=== PATIENT | male | born 1960 | race African-American/Black ===

== ENCOUNTER 2019-07-18 11:29 | Inpatient (IN) ==
[2019-07-18] MEDS ORDERED: NORCO-5 PO ONE (12:06)
--- NOTE | 2019-07-18 12:10 | EKG Report ---
Test Performed on : 07/18/2019 11:47:53 AM Test Reason : chest wall pain Blood Pressure : / mmHG Vent. Rate : 072 BPM Atrial Rate : 072 BPM P-R Int : 180 ms QRS Dur : 106 ms QT Int : 428 ms P-R-T Axes : 011 068 197 degrees QTc Int : 468 ms Normal sinus rhythm. ST & T wave abnormality, consider lateral ischemia Prolonged QT Abnormal ECG When compared with ECG of 14-DEC-2018 09:07, Questionable change in QRS axis ST now depressed in Lateral leads Inverted T waves have replaced nonspecific T wave abnormality in Lateral leads Unconfirmed Result
--- NOTE | 2019-07-18 12:33 | Diag Imaging Result Doc PS360 ---
EXAM: CHEST-1 VIEW INDICATION: chest wall pain TECHNIQUE: One view COMPARISON: 10/23/2018 FINDINGS: Inspiration is somewhat suboptimal. The lungs are grossly clear. There is no discrete pleural fluid collection or pneumothorax. There are stable CABG changes. There is stable cardiomegaly. Central vasculature is unremarkable. IMPRESSION: Stable cardiomegaly but no definite acute chest pathology by plain radiograph. Electronically signed by Levon Pereira 07/18/2019 12:30 PM
[2019-07-18 12:36] LABS: BASO# 0.07 X1000 (0.0-0.2); EOS% 4.2 % (0.0-10.0); HEMATOCRIT 36.3 % (42.0-52.0); LYMPH# 2.69 X1000 (1.2-3.4); LYMPH% 37.9 % (20.5-51.1); MCH 29.9 PG (27-31); MCHC 33.1 g/dL (33-37); MCV 90.5 FL (81-99); MONO# 0.84 X1000 (0.11-0.59); MONO% 11.8 % (1.7-9.3); MPV 9.2 FL (7.4-10.4); NEUT% 45.1 % (42.2-75.2); PLT 244 X1000 (130-400); RBC 4.01 XMIL (4.7-6.1); RDW 13.3 % (11.5-14.5)
[2019-07-18 13:03] LABS: ALB/GLOB RATIO 1.8; ALBUMIN 4.2 g/dL (3.5-5.0); CALCIUM 8.3 mg/dL (8.8-10.2); CREATININE 3.8 mg/dL (0.7-1.2); POTASSIUM 3.3 mmol/L (3.5-5.1); TOTAL BILIRUBIN 0.25 mg/dL (0.20-1.00); TOTAL PROTEIN 6.6 g/dL (6.3-8.3)
--- NOTE | 2019-07-18 14:59 | PROVIDER DOCUMENTATION ---
This chart was entered by Alexia Mike Scribe, acting as scribe for Sage Eatsman MD. HPI-Chest Pain - General Chief Complaint: Chest Pain Stated Complaint: R-SHOULDER DISCOMFORT Time Seen by Provider: 07/18/19 11:47 Source: patient Allergies/Adverse Reactions: Patient Allergies Allergy/AdvReac Type Severity Reaction Status Date / Time latex Allergy RASH Verified 07/18/19 15:00 Home Medications: Home Medication List Medication Instructions Recorded Confirmed Last Taken Type Aspirin EC 81 mg PO DAILY 10/09/16 07/18/19 06/27/19 08:00 History Insulin Regular, Human [Novolin R] 1 unit SUBQ PRN PRN 10/09/16 07/18/19 06/26/19 21:00 History LISINOpril [Prinivil] 10 mg PO DAILY #90 tablet 10/12/16 07/18/19 06/27/19 08:00 Rx Cholecalciferol (Vit D3) [Vitamin 1,000 unit PO DAILY 12/14/18 07/18/19 06/26/19 08:00 History D] Insulin Glargine,Hum.rec.anlog 1 unit SQ PRN PRN 12/14/18 07/18/19 06/25/19 History [Lantus Solostar] Multivitamin/Iron/Folic Acid 1 ea PO DAILY 12/14/18 07/18/19 06/26/19 08:00 History [Centrum Adults Tablet] Amlodipine Besylate [Norvasc] 10 mg PO DAILY 06/25/19 07/18/19 06/26/19 08:00 History Atorvastatin Calcium [Lipitor] 20 mg PO DAILY 06/25/19 07/18/19 06/26/19 21:00 History Metoprolol [Lopressor] 25 mg PO DAILY 06/27/19 07/18/19 06/27/19 08:00 History Sevelamer Carbonate 1 tab PO EVERY OTHER DAY 07/18/19 07/18/19 07/18/19 History 0800 - History of Present Illness-CP Nature of Presenting Problem: 59 yom presents to the ed with c/o intermittent rt upper chest wall pain with palpation or cough. pt went to dialysis this am and sts sx onset last night. pt on exam is nontoxic in appearance Location: reports: other (rt anterior chest wall) Quality of Pain: reports: aching Severity in ED: mild Onset/Duration: last night Timing: still present Context/Activities at Onset: reports: light activity Modifying Factors: improves with: rest. worse with: coughing, movement Associated Symptoms: reports: denies symptoms Nitro Today/Relief: no nitro taken today Aspirin Treatment Today: no aspirin today Prior Chest Pain/Cardiac Workup: reports: no prior chest pain Similar Symptoms Previously?: No Recently Seen Here or By Another Healthcare Provider: No Review of Systems - Adult - REVIEW OF SYSTEMS - ADULT Constitutional: denies: chills, fever Eyes: reports: no symptoms reported Ears, Nose, Mouth & Throat: reports: no symptoms reported Cardiovascular: reports: see HPI, chest pain. denies: palpitations, syncope Respiratory: reports: see HPI, cough. denies: shortness of breath, wheezing Gastrointestinal: denies: abdominal pain, diarrhea, nausea, vomiting Genitourinary: reports: no symptoms reported Musculoskeletal: denies: back pain, neck pain Integumentary: reports: no symptoms reported Neurological: denies: dizziness/vertigo, headache/migraines Psychiatric: reports: no symptoms reported Endocrine: reports: no symptoms reported Hematologic/Lymphatic: reports: no symptoms reported Allergic/Immunologic: reports: no symptoms reported All Other Systems: Reviewed and Negative Past History - Adult - PAST MEDICAL HISTORY-ADULT Review of Records: reports: Old Records Reviewed, Nursing Assessment Review, Medications Reviewed, Social history reviewed & non-contributory. Major Childhood Illnesses: reports: denies history Cardiovascular: reports: CAD, HTN, hyperlipidemia Respiratory: reports: denies history Gastrointestinal: reports: GERD Genitourinary: reports: dialysis, ESRD Musculoskeletal: reports: denies history Hand Dominance: Right Handed Neurological: reports: denies history Psychiatric: reports: denies history Endocrine/Immune: reports: Diabetes Diabetes Type: Type 2 Other Conditions: reports: denies history - PRIOR SURGERIES/PROCEDURES Surgical/Procedure History: reports: CABG, other (penile pump in 2001) - IMMUNIZATION STATUS Childhood Immunizations: See Nurse Assessment Flu Vaccine: See Nurse Assessment - FAMILY HISTORY Family History: reviewed, not pertinent - SOCIAL HISTORY Smoking: quit greater than 1 year Substance Use: denies Living Situation: family Physical Exam-General - PHYSICAL EXAM-ADULT Initial Vital Signs Reviewed: Yes - CONSTITUTIONAL General Appearance: appears well, alert, no apparent distress - EYES Eyes: PERRL/EOMI, pink conjunctivae - HEAD, EARS, NOSE, MOUTH & THROAT HENMT: moist mucous membranes - NECK Neck: non-tender, full range of motion, supple, normal inspection - RESPIRATORY Respiratory: lungs clear, normal breath sounds - CARDIOVASCULAR Cardiovascular: normal peripheral pulses, regular rate, rhythm - CHEST (BREASTS) Chest/Breast: tenderness (rt upper chest wall with palpation and cough), other (well healed CABG scar on chest) - GASTROINTESTINAL (ABDOMEN) Abdominal Exam: normal bowel sounds, non tender, soft - LYMPHATIC Lymphatic: no adenopathy - MUSCULOSKELETAL Back Exam: normal inspection, no CVA tenderness, no vertebral tenderness Extremity: normal range of motion, non-tender, normal gait, normal inspection - SKIN Integumentary: normal color, normal turgor, warm/dry - NEUROLOGIC Neurologic: grossly normal - PSYCHIATRIC Psych/Mental Status: normal mood/affect, normal thought content, normal thought process, oriented x 3 - HEART Score HEART Score: History: Slightly Suspicious HEART Score: ECG: Non-Specific Repolarization Disturbance/LBBB/PM HEART Score: Age: 45-65 Years HEART Score: Risk Factors for Atherosclerotic Disease: > or = 3 Risk Factors or History of Atherosclerotic Disease HEART Score: Troponin: 1-3x Normal Limit Total HEART Score:: 5 Progress - PLAN OF CARE/RESULTS Progress/Plan/Lab Results: Vital Signs - 8 hr 07/18/19 11:38 Temperature 98.0 F Pulse Rate 76 Respiratory Rate 18 Blood Pressure 131/74 O2 Sat by Pulse Oximetry 99 Laboratory Results - last 24 hr 07/18/19 07/18/19 07/18/19 12:20 12:20 12:20 WBC 7.10 RBC 4.01 L Hgb 12.0 L Hct 36.3 L MCV 90.5 MCH 29.9 MCHC 33.1 RDW Std Deviation 13.3 Plt Count 244 MPV 9.2 Immature Gran % (Auto) 0.0 Neut % (Auto) 45.1 Lymph % (Auto) 37.9 Kendall % (Auto) 11.8 H Eos % (Auto) 4.2 Baso % (Auto) 1.0 H Immature Gran # (Auto) 0.00 Neut # (Auto) 3.20 Lymph # (Auto) 2.69 Kendall # (Auto) 0.84 H Eos # (Auto) 0.30 Baso # (Auto) 0.07 Sodium 135 L Potassium 3.3 L Chloride 96 L Carbon Dioxide 26 Anion Gap 13 BUN 19 Creatinine 3.8 H Estimated GFR/1.73 m2 20 BUN/Creatinine Ratio 5 Glucose 158 H Calculated Osmolality 276 Calcium 8.3 L Total Bilirubin 0.25 AST 10 ALT 8 L Alkaline Phosphatase 164 H Troponin T 0.110 H Total Protein 6.6 Albumin 4.2 Globulin 2.4 Albumin/Globulin Ratio 1.8 Orders Category Date Time Status Diabetic Diet Diet 07/18/19 14:57 Active CHEST-1 VIEW [RAD] Stat Exams 07/18/19 12:06 Completed CBC WITH ELECTRONIC DIFF [HEME] Stat Lab 07/18/19 12:20 Completed COMPREHENSIVE METABOLIC PANEL [CHEM] Stat Lab 07/18/19 12:20 Completed TROPONIN T Stat Lab 07/18/19 12:20 Completed Hydrocodone/APAP 5 mg/325 mg [Murphy-5] Med 07/18/19 12:06 Discontinued 1 each PO NOW ONE EKG [EKG] Stat Ther 07/18/19 12:07 Draft Result Diagrams: 07/18/19 12:20 07/18/19 12:20 - REASSESSMENT Reassessment #1 Time Reassessed: 12:35 ( at [facility]) Status: improving (pain is much better) - EKG 1 Time of EKG reading by physician:: 11:47 EKG Read and Signed by:: Sage Eastman EKG Interpretation (*Must complete 3 of following elements*): Abnormal Rate: 72 Rhythm: nsr [place]: normal QRS: other (prolonged QT) RI Interval: normal Comments: ST and T wave abnormality, consider lateral ischmia - XRAY 1 XRAY: Bilateral XRAY Study: Chest Impression: See EMR Report (EXAM: CHEST-1 VIEW INDICATION: chest wall pain TECHNIQUE: One view COMPARISON: 10/23/2018 FINDINGS: Inspiration is somewhat suboptimal. The lungs are grossly clear. There is no discrete pleural fluid collection or pneumothorax. There are stable CABG changes. There is stable cardiomegaly. Central vasculature is unremarkable. IMPRESSION: Stable cardiomegaly but no definite acute chest pathology by plain radiograph. Electronically signed by Levon Pereira 07/18/2019 12:30 PM 07/18/19 1230 Interpreting Physician: Levon Pereira MD Dictated Date/Time: 07/18/19 1230 cc: Sage aEstman MD; Edmund Shah MD) - CONSULTS/PCP/HOSPITALIST Notification #1 *Consult/PCP/Hospitalist*: dr shah pcp Time Discussed: 14:53 Consult Disposition: Admit Departure - Departure Date of Disposition Decision: 07/18/19 Time of Disposition Decision: 14:57 DIAGNOSIS: HTN (hypertension) with goal to be determined, Chest pain Disposition: ADMITTED INPATIENT 09 Certified Medical Emergency: Emergent Condition: Fair Referrals and Follow-Ups: Edmund Shah MD [Primary Care Provider] - - Critical Care Note This patient required my direct & personal management of CC.: No Attestation - Physician/ GILDA Attestation Patient care was provided by Advanced Practice Provider:: No The physician spent face to face time with patient:: Yes Advanced Practice Provider documentation review:: Supervising physician onsite a nd consulted in the evaluation and care of this patient. The physician did have a face to face encounter with the patient. This chart was documented by the indicated scribe, (Alexia Mike Scribe) and accurately reflects the services I performed and decisions made by me, Sage Eastman MD, as attested by the provider's signature.
[2019-07-18] MEDS ORDERED: ASPIRIN PO ONE (15:24)
--- NOTE | 2019-07-18 21:45 | HISTORY AND PHYSICAL ---
CHIEF COMPLAINT: Chest pain. HISTORY OF PRESENT ILLNESS: This 59-year-old male came to the emergency room with chest pain. Pain is atypical, somewhat reproducible. Emergency room physicians called me that he needs to be hospitalized. I have not seen him for more than a year and a half. He was going for [facility]. I did not even know he was on dialysis. He had a positive troponin. EKG reported normal sinus, arterial inversion in the lateral leads, prolonged Q-T interval 468 milliseconds. Basically, admitted to the hospital for rule out GA and further workup. He has known history of bypass surgery. Chest x-ray stable, cardiomegaly. As a result, a hospital admission was warranted. Obviously, the patient has dialysis today by Dr. Maravilla. PAST MEDICAL HISTORY: 1. COPD. 2. CAD. 3. Hypertension. 4. End-stage kidney disease, on dialysis. 5. Chronic systolic heart failure. 6. Type 2 diabetes. 7. Peripheral neuropathy due to type 2 diabetes. 8. Acid reflux disease. 9. Hyperuricemia. PAST SURGICAL HISTORY: 1. Penile prosthesis. 2. Bypass surgery. 3. Right ankle surgery. 4. Left AV graft. MEDICATIONS: 1. Aspirin 81 mg daily. 2. Insulin regular as needed on a sliding scale. 3. Lisinopril 10 mg daily. 4. Vitamin D3 1000 units daily. 5. Lantus Solostar 15 units per day. 6. Multivitamin 1 tablet daily. 7. Lipitor 20 daily. 8. Amlodipine 10 daily. 9. Metoprolol 25 daily. 10. Sevelamer carbonate 80 mg every other day. 11. Oxycodone by Levon Levy for chronic pain. ALLERGIES: Latex. SOCIAL HISTORY: , 2 kids. Lives in [place]. Disabled. No smoking. Socially drinks alcohol. FAMILY HISTORY: Father at the age of 59 from diabetes and heart disease. Mother is still living. HEALTH MAINTENANCE: He was seen in my office last on 03/16/2018. Influenza vaccine in 2018, pneumococcal in 2016 colonoscopy in 2013. Mostly he is going to [facility]. REVIEW OF SYSTEMS: HEENT: No headache. No vision problem. No earache. No sore throat. Neck: No goiter. No lymphadenopathy. No bruit. Cardiopulmonary: Chest pain as described, under the care of Dr. Ortiz. No swelling of feet. No shortness of breath, PND, orthopnea. GI: No nausea, vomiting, abdominal pain. : Penile implant was placed. Extremities: No peripheral edema or cyanosis. Neurologic: No obvious neurological deficits. PHYSICAL EXAMINATION: VITAL SIGNS: 6 feet tall, 187 pounds, temperature is 97 degrees, pulse 72, blood pressure 142/76. HEENT: Atraumatic, normocephalic. Pupils equal, reactive to light. TMs are normal. Nose and throat within normal limits. NECK: Supple. No lymphadenopathy. CHEST: Bilateral air entry. Pain is not reproducible. HEART: Distant heart sounds. ABDOMEN: Belly is soft, nontender. Good bowel sounds. EXTREMITIES: Left AV graft present. : Penile implant present. No signs of gangrene. Pulses are palpable. No obvious deficits. INVESTIGATIONS: CBC: White cell count 7.1, hematocrit 36.3, platelets 244,000. Sodium 135, potassium 3.3, chloride 96, BUN 19, creatinine 3.9. Troponin was positive. EKG was NSR T wave inversion lateral precordial leads. Chest x-ray: Cardiomegaly. ASSESSMENT AND PLAN: A 59-year-old male with: 1. Known history of coronary artery disease, status post bypass surgery, waiting for renal transplant, on temporary dialysis by Dr. Maravilla. Not seen in my office more than a year and a half. Admitted to the hospital for chest pain, rule out myocardial infarction. Needs further cardiac workup based on the clinical course. 2. End-stage kidney disease, on dialysis by Dr. Maravilla 3 times a week. 3. Reconcile home medications. 4. Chronic pain, with oxycodone by Levon Levy. 5. Follow up. cc: Lamin Escamilla MD [facility]
[2019-07-18] MEDS ORDERED: RENAGEL PO PRN (22:17)
[2019-07-19 05:27] LABS: BASO# 0.05 X1000 (0.0-0.2); BASO% 0.9 % (0.0-0.8); EOS# 0.25 X1000 (0.0-0.7); EOS% 4.3 % (0.0-10.0); HEMATOCRIT 35.8 % (42.0-52.0); HEMOGLOBIN 11.7 g/dL (14.0-18.0); LYMPH% 26.1 % (20.5-51.1); MCH 29.6 PG (27-31); MCHC 32.7 g/dL (33-37); MCV 90.6 FL (81-99); MONO# 0.76 X1000 (0.11-0.59); MONO% 13.2 % (1.7-9.3); MPV 9.6 FL (7.4-10.4); NEUT# 3.19 X1000 (1.4-6.5); NEUT% 55.5 % (42.2-75.2); PLT 254 X1000 (130-400); RBC 3.95 XMIL (4.7-6.1); RDW 13.2 % (11.5-14.5); WBC 5.75 X1000 (4.8-10.8)
[2019-07-19 05:47] LABS: HEMOGLOBIN A1C 7.6 % (4.8-6.0)
[2019-07-19] MEDS: HUMULIN R SUBQ SCH ×3 (06:57→17:02)
--- NOTE | 2019-07-19 07:20 | EKG Report ---
Test Performed on : 07/19/2019 07:15:02 AM Test Reason : cp Blood Pressure : / mmHG Vent. Rate : 059 BPM Atrial Rate : 059 BPM P-R Int : 190 ms QRS Dur : 104 ms QT Int : 452 ms P-R-T Axes : 060 -01 -47 degrees QTc Int : 447 ms Sinus bradycardia. T wave abnormality, consider inferior ischemia Abnormal ECG Confirmed by Jenae CROFT, Landon Leon ([id number]) on 07/19/2019 9:01:28 AM
[2019-07-19 07:48] LABS: AGAP 16; ALB/GLOB RATIO 1.3; ALBUMIN 4.1 g/dL (3.5-5.0); ALKALINE PHOSPHATASE 180 U/L (32-122); BUN 34 mg/dL (8-22); CALCIUM 8.9 mg/dL (8.8-10.2); CHLORIDE 95 mmol/L (98-107); CHOLESTEROL 130 mg/dL (0-200); COSMO 288; CREATININE 6.2 mg/dL (0.7-1.2); ESTIMATED GFR 11; GLUCOSE 322 mg/dL (70-104); GOT 11 U/L (10-34); GPT 9 U/L (10-44); HDL 49 mg/dL (35-55); LDL 67 mg/dL; POTASSIUM 4.4 mmol/L (3.5-5.1); SODIUM 134 mmol/L (136-145); TCO2 23 mmol/L (25-35); TOTAL BILIRUBIN 0.22 mg/dL (0.20-1.00); TOTAL PROTEIN 7.2 g/dL (6.3-8.3); TRIGLYCERIDES 69 mg/dL (39-160); VLDL 14 mg/dL
[2019-07-19] MEDS ORDERED: LEXISCAN ONE (08:05)
[2019-07-19] MEDS ORDERED: CENTRUM TABLET PO SCH (09:00)
[2019-07-19] MEDS ORDERED: VITAMIN D PO SCH (09:00)
[2019-07-19] MEDS ORDERED: ASPIRIN PO SCH (09:00)
[2019-07-19] MEDS ORDERED: LOPRESSOR PO SCH (09:00)
[2019-07-19] MEDS ORDERED: NORVASC PO SCH (09:00)
[2019-07-19] MEDS ORDERED: LIPITOR PO SCH (09:00)
[2019-07-19] MEDS ORDERED: PRINIVIL PO SCH (09:00)
--- NOTE | 2019-07-19 13:17 | Diag Imaging Result Document ---
PROCEDURE NAME: MYOCARDIAL PERF SCAN, STR/REST - 07/19/2019 INDICATION: Chest pain. PROCEDURES PERFORMED: 1. One-day stress rest myocardial perfusion imaging. 2. Lexiscan stress FINDINGS: LEXISCAN STRESS RESULTS: 1. Baseline EKG shows sinus rhythm, with T-wave inversions noted inferior and lateral. 2. Lexiscan stress did not demonstrate any clear evidence of ischemic related EKG changes or significant arrhythmias. PERFUSION IMAGING RESULTS: 1. No evidence of abnormal extracardiac uptake. 2. TID ratio 0.97. 3. Perfusion imaging demonstrates 2 separate defects. The first defect is a large size mixed defect of moderate to severe intensity, involving the inferior apical, inferior lateral mid as well as the inferior lateral basilar segments. This defect is mixed, with a moderate baseline defect that worsens to [id number] in intensity on stress suggesting some reversibility in the more peripheral portions of the defect. There is a second defect that is small in size, mild in intensity, and located in the anterior apical and mid anterior segments. This is fixed. 4. Reduced ejection fraction of 46%. The end-diastolic volume is 253 and systolic volume of 137, suggesting a dilated left ventricle. There is global hypokinesis with suggestion of hypokinesis in the inferolateral wall. cc: MD Lamin Lugo MD
[2019-07-19 15:57] VITALS: BP 130/62
[2019-07-20] MEDS ORDERED: RENAGEL PO SCH (09:00)
[2019-07-20] MEDS ORDERED: VITAMIN D PO SCH (09:00)
--- NOTE | 2019-07-22 19:08 | DISCHARGE SUMMARY ---
ADMISSION DATE: 07/18/2019 DISCHARGE DATE: 07/19/2019 DISCHARGING DIAGNOSES: 1. Atypical chest pain, abnormal stress tests with a mild reversible ischemia, ejection fraction reported to 45%, global hypokinesis with the inferior lateral wall. 2. Chronic obstructive pulmonary disease. 3. Coronary artery disease status post bypass surgery. 4. End-stage kidney disease on dialysis x3 via left arm arteriovenous graft by Dr. Maravilla. 5. Chronic systolic heart failure due to ischemic cardiomyopathy, stable. 6. Complicated type 2 diabetes. 7. Peripheral neuropathy. 8. Acid reflux disease. 9. Hyperuricemia status post penile implant for erectile dysfunction. 10. Chronic pain, under Dr. Levy pain specialist. BRIEF HISTORY: Please see the H P that was done on 07/18/2019. In brief, he is a 59-year-old male, has been not seen in my office since February of last year. He is going for [facility] and also on the waiting list for renal transplant list in [place]. Obviously, patient had workup done cardiac 3 months ago in the [facility], which includes left heart catheterization. I do not have all the details. He just started having hemodialysis 3 times a week. He came to the emergency room with chest pain. EKG was abnormal, and in light of the underlying CAD and risk factors, he was admitted for observation. In follow- up, he was ruled out for GA. Stress test was done with the above findings. The patient did not want to pursue any further workup since he already had a workup done in the [facility]. He wants to go home. DIAGNOSTIC STUDIES: CBC: White cell count 5.7, hematocrit 35.8, platelets 254,000. Sodium 134, potassium 4.4, BUN 34, creatinine 6.2, glucose 320. A1c 7.6. Troponin was positive slightly and the CK was negative. ProBNP 2700. Cholesterol 130, LDL is 67. Chest x-ray: Stable cardiomegaly. DISCHARGING INSTRUCTIONS: We will get the previous reports from the [facility]. Continue hemodialysis as per Dr. Maravilla. Aspirin 81 mg daily. Lisinopril 10 mg daily. Vitamin D 5000 units daily. Insulin Lantus 10 units at bedtime and using NovoLog insulin 3 times daily. Multivitamin 1 tablet daily. Lipitor 20 daily. Amlodipine 10 daily. Metoprolol 25 daily. Sevelamer carbonate 800 mg t.i.d. A1c is 7.6. LDL less than 70. Follow up in my office next week. cc: MD Aj Bhakta MD
== END 2019-07-19 19:53 | disposition home or self-care (01) | DRG 313 ==
LOC: ED 11:29 → EDIPHOLD 19:41 → 1N 20:43
PROVIDERS: ADMIT Internal Medicine; ATTEND Internal Medicine